=== PATIENT | female | born 1970 ===

== ENCOUNTER → 2024-04-27 18:34 | Outpatient (REF) | payer BC, SELFPAY | LOC: WDC 18:34 | PROVIDERS: ATTENDING PHYSICIAN Obstetrics & Gynecology | DX: Z12.31 Encounter for screening mammogram for malignant neoplasm of breast (principal) | CPT/HCPCS: 77063; 77067 ==

== ENCOUNTER 2024-06-10 19:35 | Day surgery (SDC) | payer BC, SELFPAY ==
[2024-06-10] VITALS (22 sets, daily range): BP systolic 115–133; BP diastolic 69–89; BMI 28.5; BMI 27.7
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
[2024-06-10] MEDS: TYLENOL 650 MG PO (18:45)
[2024-06-10] MEDS: NORCO 5/325 1 TABLET PO ×2 (18:45→23:03)
[2024-06-10 19:00] LABS: Hematocrit 40.1 % (37.0-47.0); Hemoglobin 14.3 g/dL (12.0-16.0); Mean Corp Hgb Conc. 35.7 g/dL (33.0-37.0); Mean Corpuscular Hgb 31.2 pg (27.0-31.0); Mean Corpuscular Volume 87.6 fL (81.0-99.0); Mean Platelet Volume 10.3 fL (7.4-10.4); Platelet Count 258 10^3/uL (130-400); Red Blood Cell Count 4.58 10^6/uL (4.20-5.40); Red Cell Dist. Width 12.3 % (11.5-14.5); White Blood Cell Count 10.7 10^3/uL (4.8-10.8)
[2024-06-10 19:12] LABS: Blood Urea Nitrogen 12 mg/dl (7-17); Calcium 9.3 mg/dl (8.4-10.2); Carbon Dioxide 27 mmol/L (22-30); Chloride 107 mmol/L (98-107); Estimated Creatinine Clearance 118 ml/min; Glucose 90 mg/dl (70-99); Potassium 4.2 mmol/L (3.5-5.1); Sodium 139 mmol/L (135-145); eGFR > 60.00
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
[2024-06-11] VITALS (7 sets, daily range): BP systolic 112–130; BP diastolic 67–78
--- NOTE | 2024-06-11 00:06 | PTCARENOTE ---
Pt arrived to 2S via stretcher at 2030. Pt was able to ambulate to bed. Pt AAOX3. VSS. L arm splinted and prince wrapped. Head to toe assessment complete. Bed locked and in lowest position. Call taylor within reach.
--- NOTE | 2024-06-11 05:56 | PTCARENOTE ---
1st set of CHG wipes done at 0550 and gown changed.
[2024-06-11] MEDS: SYNTHROID 137 MCG PO (09:00)
[2024-06-11] MEDS: DILAUDID 0.5 MG IV ×2 (10:42→10:52)
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
[2024-06-11] MEDS: NORCO 5/325 1 TABLET PO (11:37)
== END 2024-06-11 12:47 | disposition home or self-care (01) ==
LOC: PACU 19:35
PROVIDERS: Physician Assistant; ATTENDING PHYSICIAN Orthopaedic Surgery Hand Surgery; EMERGENCY PHYSICIAN Emergency Medicine
DX: S52.572A Other intraarticular fracture of lower end of left radius, initial encounter for closed fracture (principal); W19.XXXA Unspecified fall, initial encounter
CPT/HCPCS: 25609; C1713; 25605; 73100; 73110; 73200; 80048; 85027; 86850; 86900; 86901; 99152; 99285

== ENCOUNTER → 2024-06-12 08:06 | Outpatient (REF) | payer BC, SELFPAY | LOC: WDC 08:06 | PROVIDERS: ATTENDING PHYSICIAN Obstetrics & Gynecology; FAMILY PHYSICIAN Family Medicine | DX: R92.2 Inconclusive mammogram (principal) | CPT/HCPCS: 76641 ==

== ENCOUNTER → 2024-11-22 14:54 | Outpatient (REF) | payer BC, SELFPAY | LOC: HWRAD 14:54 | PROVIDERS: ATTENDING PHYSICIAN Physician Assistant Medical; FAMILY PHYSICIAN Family Medicine | DX: S62.102A Fracture of unspecified carpal bone, left wrist, initial encounter for closed fracture (principal); N95.1 Menopausal and female climacteric states | CPT/HCPCS: 77080 ==

== ENCOUNTER → 2025-06-23 13:33 | Outpatient (REF) | payer BC, SELFPAY | LOC: WDC 13:33 | PROVIDERS: ATTENDING PHYSICIAN Obstetrics & Gynecology; FAMILY PHYSICIAN Family Medicine | DX: Z12.31 Encounter for screening mammogram for malignant neoplasm of breast (principal) | CPT/HCPCS: 77063; 77067 ==